=== PATIENT | male | born 1965 | race Caucasian/White ===

== ENCOUNTER 2017-11-04 16:46 | Emergency (ER) | payer MEDICARE | END 2017-11-04 18:00 | disposition home or self-care (01) | LOC: ERS 16:46 | DX: J11.1 Influenza due to unidentified influenza virus with other respiratory manifestations (principal); E10.9 Type 1 diabetes mellitus without complications; E78.5 Hyperlipidemia, unspecified; I10 Essential (primary) hypertension; Z79.899 Other long term (current) drug therapy; Z79.82 Long term (current) use of aspirin | CPT/HCPCS: 87804; 99283 ==

== ENCOUNTER 2023-06-12 19:04 | Observation (INO) | payer MEDICARE, MEDICAID ==
[2023-06-12] MEDS ORDERED: Dextrose 50% Abboject 50 ML SYRINGE ONE (20:30)
[2023-06-12 21:06] LABS: #Basophils 0.1 thou/uL (0.0-0.2); #Eosinphils 0.1 thou/uL (0.0-0.7); #Monocytes 0.8 thou/uL (0.11-0.59); #Neutrophils 11.9 thou/uL (1.40-6.50); %Basophils 0.3 % (0.0-1.0); %Eosinophils 0.6 % (0.0-10.0); %Lymphocytes 10.5 % (21.0-51.0); %Monocytes 5.2 % (0.0-10.0); %Neutrophils 82.8 % (42.0-75.0); Hematocrit 48.7 % (42.0-52.0); Hemoglobin 16.8 g/dL (14.0-18.0); Mean Corpuscular HGB CONC 34.5 g/dL (32.0-36.0); Mean Corpuscular Hemoglobin 29.1 pg (27.0-31.0); Mean Corpuscular Volume 84.3 fl (78.0-98.0); Mean Platelet Volume 10.4 fL (7.4-10.4); Platelet Count 257 10x3/uL (130-400); RBC Distribution Width 12.3 % (11.5-14.5); Red Blood Cell (RBC) Count 5.78 mill/uL (4.70-6.10); White Blood Cell (WBC) Count 14.3 10x3/uL (4.8-10.8)
[2023-06-12 21:27] LABS: ALT (SGPT) 23 U/L (8-55); AST (SGOT) 18 U/L (5-34); Albumin 3.9 g/dL (3.5-5.0); Alkaline Phosphatase 111 U/L (40-110); Anion Gap 12 mmol/L (10-20); BUN (Urea Nitrogen) 15 mg/dL (8.4-25.7); Bilirubin, Total 0.3 mg/dL (0.2-1.2); Calc. Creatinine Clearance 0 mL/min (70-130); Calcium 9.2 mg/dL (7.8-10.44); Carbon Dioxide 20 mmol/L (22-29); Chloride 108 mmol/L (98-107); Estimated GFR 104; Globulin 2.9 g/dL (2.4-3.5); Glucose 102 mg/dL (70-105); Potassium 3.3 mmol/L (3.5-5.1); Protein, Total 6.8 g/dL (6.0-8.3); Sodium 137 mmol/L (136-145)
[2023-06-12] MEDS ORDERED: Acetaminophen 325 MG TAB PO PRN (22:15)
[2023-06-12] MEDS ORDERED: Ondansetron PF 4 MG/2 ML Vial IVP PRN (22:15)
[2023-06-12] MEDS ORDERED: Ondansetron ODT 4 MG TAB SL PRN (22:15)
[2023-06-12] MEDS ORDERED: Glucagon 1 MG/ML KIT IM PRN (22:52)
[2023-06-12] MEDS ORDERED: HumaLOG 300 UNITS/3 ML VIAL SC PRN ×2 (22:52)
[2023-06-12] MEDS ORDERED: Dextrose 5% in Water 1,000 ML IV PRN (22:52)
[2023-06-12] MEDS ORDERED: Dextrose 50% Abboject 50 ML SYRINGE SLOW IVP PRN (22:52)
[2023-06-12] MEDS ORDERED: Senokot S 8.6-50 MG TAB PO PRN (22:53)
[2023-06-12 23:19] VITALS: BMI 23.0
[2023-06-13 07:30] LABS: Anion Gap 12 mmol/L (10-20); BUN (Urea Nitrogen) 13 mg/dL (8.4-25.7); Calc. Creatinine Clearance 102 mL/min (70-130); Calcium 8.6 mg/dL (7.8-10.44); Carbon Dioxide 22 mmol/L (22-29); Chloride 104 mmol/L (98-107); Estimated GFR 101; Glucose 301 mg/dL (70-105); Potassium 3.7 mmol/L (3.5-5.1); Sodium 134 mmol/L (136-145)
[2023-06-13] MEDS ORDERED: Lisinopril 5 MG TAB PO SCH (09:00)
[2023-06-13] MEDS ORDERED: Insulin Glargine 30 UNITS/0.3 ML VIAL SC SCH (09:00)
[2023-06-13] MEDS ORDERED: Famotidine 20 MG TAB PO SCH (09:00)
[2023-06-13 10:46] VITALS: BP 157/94; TEMP 98.4
[2023-06-13] MEDS ORDERED: Atorvastatin Calcium 20 MG TAB PO SCH (21:00)
== END 2023-06-13 11:07 | disposition home or self-care (01) ==
LOC: ERS 19:04 → T4-A 22:02
PROVIDERS: ADMIT Student in an Organized Health Care Education/Training Program; ATTEND Student in an Organized Health Care Education/Training Program
DX: T38.3X1A Poisoning by insulin and oral hypoglycemic [antidiabetic] drugs, accidental (unintentional), initial encounter (principal); E11.649 Type 2 diabetes mellitus with hypoglycemia without coma; I10 Essential (primary) hypertension; E78.5 Hyperlipidemia, unspecified; Z79.4 Long term (current) use of insulin
CPT/HCPCS: 36415; 36416; 80048; 80053; 83036; 85025; 96361; 96374; J1815; J7999

== ENCOUNTER 2025-08-09 08:46 | Emergency (ER) | payer MEDICARE, MEDICAID ==
[2025-08-09 10:29] LABS: #Basophils 0.05 10x3/uL (0.0-0.2); #Eosinophils 0.47 10x3/uL (0.0-0.7); #Monocytes 0.61 10x3/uL (0.11-0.59); #Neutrophils 5.85 10x3/uL (1.40-6.50); %Basophils 0.6 % (0.0-1.0); %Eosinophils 5.2 % (0.0-10.0); %Lymphocytes 22.0 % (21.0-51.0); %Monocytes 6.8 % (0.0-10.0); %Neutrophils 65.0 % (42.0-75.0); Hematocrit 49.7 % (42.0-52.0); Hemoglobin 16.2 g/dL (14.0-18.0); Mean Corpuscular Hemoglobin 27.6 pg (27.0-31.0); Mean Corpuscular Volume 84.8 fL (78.0-98.0); Platelet Count 351 10x3/uL (130-400); Red Blood Cell (RBC) Count 5.86 mill/uL (4.70-6.10); White Blood Cell (WBC) Count 9.00 10x3/uL (4.8-10.8)
[2025-08-09] MEDS ORDERED: Lidocaine Viscous Sol 2% 15 ml UD Cup ONE (10:29)
[2025-08-09] MEDS ORDERED: Mag-Al 1200 mg/1200 mg/30 ML UDCUP ONE (10:29)
[2025-08-09 11:06] LABS: ALT (SGPT) 33 U/L (Less than 45); AST (SGOT) 29 U/L (11-34); Albumin 4.0 g/dL (3.1-4.5); Alkaline Phosphatase 150 U/L (40-110); Anion Gap 12 mmol/L (10-20); BUN (Urea Nitrogen) 11 mg/dL (8.4-25.7); Bilirubin, Total 0.4 mg/dL (0.3-1.2); Calc. Creatinine Clearance 0 mL/min (70-130); Calcium 9.5 mg/dL (7.8-10.44); Carbon Dioxide 26 mmol/L (22-29); Chloride 103 mmol/L (98-107); Globulin 3.6 g/dL (2.4-3.5); Glucose 178 mg/dL (70-105); Lipase 9 U/L (8-78); Potassium 4.3 mmol/L (3.5-5.1); Sodium 137 mmol/L (136-145)
== END 2025-08-09 12:46 | disposition home or self-care (01) ==
LOC: ERS 08:46
DX: E10.43 Type 1 diabetes mellitus with diabetic autonomic (poly)neuropathy (principal); K31.84 Gastroparesis; T38.3X5A Adverse effect of insulin and oral hypoglycemic [antidiabetic] drugs, initial encounter; I10 Essential (primary) hypertension
CPT/HCPCS: 71045; 80053; 83605; 83690; 84484; 85025; 93005

== ENCOUNTER 2025-09-04 02:17 | Emergency (ER) | payer MEDICAID, MEDICARE | END 2025-09-04 02:55 | disposition home or self-care (01) | LOC: ERS 02:17 | DX: L30.9 Dermatitis, unspecified (principal); I10 Essential (primary) hypertension; E10.9 Type 1 diabetes mellitus without complications; Z95.1 Presence of aortocoronary bypass graft | CPT/HCPCS: 99282 ==

== ENCOUNTER 2025-10-01 00:23 | Emergency (ER) | payer MEDICARE ==
[2025-10-01 03:11] LABS: #Basophils 0.11 10x3/uL (0.0-0.2); #Eosinophils 1.32 10x3/uL (0.0-0.7); #Monocytes 0.94 10x3/uL (0.11-0.59); #Neutrophils 5.27 10x3/uL (1.40-6.50); %Basophils 1.0 % (0.0-1.0); %Eosinophils 12.3 % (0.0-10.0); %Lymphocytes 28.6 % (21.0-51.0); %Monocytes 8.8 % (0.0-10.0); %Neutrophils 49.0 % (42.0-75.0); Hematocrit 46.4 % (42.0-52.0); Hemoglobin 15.4 g/dL (14.0-18.0); Mean Corpuscular Hemoglobin 27.5 pg (27.0-31.0); Mean Corpuscular Volume 83.0 fL (78.0-98.0); Platelet Count 304 10x3/uL (130-400); Red Blood Cell (RBC) Count 5.59 mill/uL (4.70-6.10); White Blood Cell (WBC) Count 10.74 10x3/uL (4.8-10.8)
[2025-10-01 03:29] LABS: ALT (SGPT) 32 U/L (Less than 45); AST (SGOT) 37 U/L (11-34); Albumin 4.1 g/dL (3.1-4.5); Alkaline Phosphatase 182 U/L (40-110); Anion Gap 19 mmol/L (10-20); BUN (Urea Nitrogen) 16 mg/dL (8.4-25.7); Bilirubin, Total 0.4 mg/dL (0.3-1.2); Calc. Creatinine Clearance 0 mL/min (70-130); Calcium 9.1 mg/dL (7.8-10.44); Carbon Dioxide 22 mmol/L (22-29); Chloride 102 mmol/L (98-107); Globulin 3.7 g/dL (2.4-3.5); Glucose 344 mg/dL (70-105); Potassium 5.0 mmol/L (3.5-5.1); Sodium 138 mmol/L (136-145)
== END 2025-10-01 04:54 | disposition home or self-care (01) ==
LOC: ERS 00:23
DX: L30.9 Dermatitis, unspecified (principal); E11.9 Type 2 diabetes mellitus without complications; I10 Essential (primary) hypertension; Z79.82 Long term (current) use of aspirin; Z79.899 Other long term (current) drug therapy
CPT/HCPCS: 80053; 83605; 85025; 96374; J2919